=== PATIENT | male | born 1945 | race Caucasian/White ===

== ENCOUNTER 2017-07-18 06:14 | Day surgery (SDC) | payer OTHER, MEDICARE ==
[2017-07-15 15:38] VITALS: BMI 47.2
[2017-07-18 07:18] LABS: INR-International Normal Ratio 1.1; Prothrombin Time 13.9 SEC (12.0-14.7)
[2017-07-18 07:19] LABS: PTT 42.3 SEC (22.9-36.1)
[2017-07-18 07:23] LABS: Cardiac Risk 2.7 (Less than 4.5)
[2017-07-18] MEDS ORDERED: Midazolam HCl 2 mg/2 ml Vial ONE (08:46)
[2017-07-18] MEDS ORDERED: Fentanyl 100 MCG/2 ML VIAL ONE (08:46)
[2017-07-18] MEDS ORDERED: Nitroglycerin 100MG/250ML BOT 250 ML ONE (08:56)
[2017-07-18] MEDS ORDERED: Heparin 10,000 UNITS/1 ML VIAL ONE (08:56)
[2017-07-18] MEDS ORDERED: Verapamil 5 MG/2 ML VIAL ONE (09:11)
[2017-07-18] MEDS ORDERED: Iopamidol 370 76% 100 ML VIAL ONE (11:34)
== END 2017-07-18 13:15 | disposition home or self-care (01) ==
LOC: CCL 06:14
PROVIDERS: ATTEND Internal Medicine Cardiovascular Disease
DX: I25.10 Atherosclerotic heart disease of native coronary artery without angina pectoris (principal); E11.9 Type 2 diabetes mellitus without complications; I10 Essential (primary) hypertension; Z79.84 Long term (current) use of oral hypoglycemic drugs; Z79.899 Other long term (current) drug therapy; Z79.82 Long term (current) use of aspirin
CPT/HCPCS: 36415; 80061; 85610; 85730; 93458; 99152; C1769; J1644; J2250; J3010